=== PATIENT | female | born 2000 | race Caucasian/White ===

== ENCOUNTER 2022-02-07 08:47 | Emergency (ER) | payer OTHER ==
[~2022-02-07] VITALS: Ht 172.7 cm; Wt 79.9 kg
== END 2022-02-07 12:18 | disposition home or self-care (01) ==
LOC: ED 08:47
DX: S00.83XA Contusion of other part of head, initial encounter (principal); W17.89XA Other fall from one level to another, initial encounter; G43.909 Migraine, unspecified, not intractable, without status migrainosus; D64.9 Anemia, unspecified; Z91.030 Bee allergy status
CPT/HCPCS: 36415; 70450; 70486; 84703; 96374; 96375; 96376; 99284-25; J1885; J2405; J7030